=== PATIENT | female | born 1975 | race African-American/Black ===

== ENCOUNTER 2017-05-30 22:56 | Emergency (ER) | payer OTHER ==
[2017-05-30 23:03] VITALS: RESP 16
[2017-05-30] MEDS ORDERED: predniSONE 20 MG TAB PO ONE (23:16)
[2017-05-30] MEDS ORDERED: diphenhydrAMINE 25 MG CAP PO ONE (23:16)
[2017-05-30] MEDS ORDERED: FAMOTIDINE 20 MG TAB PO ONE (23:16)
--- NOTE | 2017-05-30 23:18 | EDPHY ---
H & P Stated Complaint: Itching and hives all over body since this afternoon Time Seen by Provider: 05/30/17 23:11 HPI/ROS: CHIEF COMPLAINT: Hives HISTORY OF PRESENT ILLNESS: The patient is a 42-year-old female who comes to the emergency department complaining of hives. She states that they began this afternoon and are throughout her entire body. They are pruritic. She tried hydrocortisone cream without significant improvement. She states that this happened once 10 years ago in [place] and she was told that it was due to stress. She denies any new exposures today. No fevers. No difficulty breathing. No respiratory distress. REVIEW OF SYSTEMS: Constitutional: denies: chills, fever, recent illness, recent injury EENTM: denies: blurred vision, double vision, nose congestion Respiratory: denies: cough, shortness of breath Cardiac: denies: chest pain, irregular heart rate, lightheadedness, palpitations Gastrointestinal/Abdominal: denies: abdominal pain, diarrhea, nausea, vomiting, blood streaked stools Genitourinary: denies: dysuria, frequency, hematuria, pain Musculoskeletal: denies: joint pain, muscle pain Skin: See HPI Neurological: denies: headache, numbness, paresthesia, tingling, dizziness, weakness Hematologic/Lymphatic: denies: blood clots, easy bleeding, easy bruising Immunologic/allergic: denies: HIV/AIDS, transplant EXAM: GENERAL: Well-appearing, well-nourished and in no acute distress. HEAD: Atraumatic, normocephalic. EYES: Pupils equal round and reactive to light, extraocular movements intact, sclera anicteric, conjunctiva are normal. ENT: TMs normal, nares patent, oropharynx clear without exudates. Moist mucous membranes. NECK: Normal range of motion, supple without lymphadenopathy or JVD. LUNGS: Breath sounds clear to auscultation bilaterally and equal. No wheezes rales or rhonchi. HEART: Regular rate and rhythm without murmurs, rubs or gallops. ABDOMEN: Soft, nontender, normoactive bowel sounds. No guarding, no rebound. No masses appreciated. BACK: No CVA tenderness, no spinal tenderness, step-offs or deformities EXTREMITIES: Normal range of motion, no pitting or edema. No clubbing or cyanosis. NEUROLOGICAL: Cranial nerves II through XII grossly intact. Normal speech, normal gait. 5/5 strength, normal movement in all extremities, normal sensation PSYCH: Normal mood, normal affect. SKIN: Diffuse urticaria involving scalp extremities and torso. Source: Patient Exam Limitations: No limitations - Personal History LMP (Females 10-55): 1-7 Days Ago Current Tetanus/Diphtheria Vaccine: No Current Tetanus Diphtheria and Acellular Pertussis (TDAP): No Tetanus Vaccine Date: unknown - Medical/Surgical History Hx Asthma: Yes Hx Chronic Respiratory Disease: No Hx Diabetes: No Hx Cardiac Disease: No Hx Renal Disease: No Hx Cirrhosis: No Hx Alcoholism: No Hx HIV/AIDS: No Hx Splenectomy or Spleen Trauma: No Other PMH: hx breast ca, asthma, lymph nodes removed both axilla - Family History Significant Family History: No pertinent family hx - Social History Smoking Status: Former smoker Alcohol Use: Sober Drug Use: None Constitutional: Initial Vital Signs Temperature (C) 36.5 C 05/30/17 22:57 Heart Rate 65 05/30/17 22:57 Respiratory Rate 16 05/30/17 22:57 Blood Pressure 124/62 H 05/30/17 22:57 O2 Sat (%) 99 05/30/17 22:57 O2 Delivery Mode Room Air Allergies/Adverse Reactions: No Known Allergies Allergy (Unverified 07/13/13 16:14) Home Medications: Medication Instructions Recorded Famotidine [Pepcid 20 MG (OTC)] 20 mg PO BID #30 tab 05/31/17 diphenhydrAMINE [Benadryl 50 MG 50 mg PO Q4-6PRN PRN #30 cap 05/31/17 (OTC)] predniSONE 60 mg PO DAILY #9 tab 05/31/17 Medical Decision Making ED Course/Re-evaluation: 12:10 a.m. the patient is feeling slightly better. Her hives have not increased. She would like to go home and sleep. We discussed treatment at home and indications for returning. She understands and agrees with this plan. She declines further workup or testing at this time. Differential Diagnosis: Partial list of the Differential diagnosis considered include but were not limited to; urticaria, anaphylaxis and although unlikely based on the history and physical exam, I also considered infection, yeast. I discussed these differential diagnoses and the plan with the patient as well as the usual and expected course. The patient understands that the diagnosis is provisional and that in medicine we are not always correct and that further workup is often warranted. Usual and customary warnings were given. All of the patient's questions were answered. The patient was instructed to return to the emergency department should the symptoms at all worsen or return, otherwise to followup with the physician as we discussed. - Data Points Medications Given: Discontinued Medications Diphenhydramine HCl (Benadryl) 50 mg PO EDNOW ONE Stop: 05/30/17 23:17 Last Admin: 05/30/17 23:25 Dose: 50 mg Famotidine (Pepcid) 40 mg PO EDNOW ONE Stop: 05/30/17 23:17 Last Admin: 05/30/17 23:25 Dose: 40 mg Prednisone (Prednisone) 60 mg PO EDNOW ONE Stop: 05/30/17 23:17 Last Admin: 05/30/17 23:25 Dose: 60 mg Departure - Departure Disposition: Home, Routine, Self-Care Clinical Impression: Urticaria Condition: Fair Instructions: Urticaria (ED) Referrals: NONE *PRIMARY CARE P,. [Primary Care Provider] - As per Instructions Ava Galvin MD [Medical Doctor] - As per Instructions Prescriptions: diphenhydrAMINE [Benadryl 50 MG (OTC)] 50 mg PO Q4-6PRN PRN #30 cap PRN Reason: Itching Famotidine [Pepcid 20 MG (OTC)] 20 mg PO BID #30 tab predniSONE 60 mg PO DAILY #9 tab
[2017-05-31 00:23] VITALS: BP 120/63; PULSE 71; TEMP 98.1; O2SAT 97
== END 2017-05-31 00:23 | disposition home or self-care (01) ==
DX: L50.9 Urticaria, unspecified (principal); J45.909 Unspecified asthma, uncomplicated; Z85.3 Personal history of malignant neoplasm of breast; Z87.891 Personal history of nicotine dependence